=== PATIENT | female | born 1975 | race Caucasian/White ===

== ENCOUNTER 2018-04-09 14:52 | Outpatient (CLI) | payer BC | END 2018-04-09 23:59 | disposition home or self-care (01) | LOC: CFH 14:52 | PROVIDERS: ATTEND Podiatrist | DX: Z02.9 Encounter for administrative examinations, unspecified (principal) ==

== ENCOUNTER 2018-04-15 11:10 | Outpatient (CLI) | payer BC ==
[2018-04-15] MEDS ORDERED: GADOBUTROL 10 MMOL/10 ML PFS ONE (12:11)
== END 2018-04-15 23:59 | disposition home or self-care (01) ==
LOC: CFH 11:10
PROVIDERS: ATTEND Podiatrist
DX: M25.475 Effusion, left foot (principal); R60.0 Localized edema
CPT/HCPCS: 73720; A9585